=== PATIENT | male | born 1965 | race Hispanic/Latino ===

== ENCOUNTER 2019-12-14 08:35 | Outpatient (CLI) | payer BC | END 2019-12-14 08:36 | disposition home or self-care (01) | LOC: CARD 08:35 | PROVIDERS: ATTEND Internal Medicine Cardiovascular Disease | DX: I49.3 Ventricular premature depolarization (principal); I10 Essential (primary) hypertension; R07.89 Other chest pain; R06.02 Shortness of breath; R00.2 Palpitations | CPT/HCPCS: 93017 ==